=== PATIENT | female | born 1975 | race Caucasian/White ===

== ENCOUNTER 2017-10-03 15:14 | Emergency (ER) | payer OTHER ==
[2017-10-03] MEDS ORDERED: KETOROLAC TROMETHAMINE 60 MG/2 ML VIAL IM ONE (15:43)
[2017-10-03] MEDS ORDERED: NALBUPHINE HCL 10 MG/1 ML IM ONE (15:44)
--- NOTE | 2017-10-03 15:51 | ED Physician Documentation ---
General Adult - HISTORIAN Historian: patient - HPI Stated Complaint: Rt HIp Pain Chief Complaint: General Adult Further Comments: yes (42 year old female patient presents with complaints of right hip pain, radiating down outside of right leg. Patient reports pain for the past 2-3 days, has been to the chiropractor with no improvements. Denies injury or fall.) - ROS CONST: no problems EYES/ENT: none CVS/RESP: none GI/: none MS/SKIN/LYMPH: none NEURO/PSYCH: denies: headache - PAST HX Past History: other (bipolar) Allergies/Adverse Reactions: Allergies Allergy/AdvReac Type Severity Reaction Status Date / Time No Known Allergies Allergy Verified 10/03/17 15:49 Home Medications: Ambulatory Orders Medication Instructions Recorded Atorvastatin Calcium [Atorvastatin 20 mg PO DAILY 11/08/15 Calcium] Aripiprazole [Aripiprazole] 5 mg PO D 04/09/16 Oxycodone HCl [Oxycodone HCl] 1 tab PO PRN 04/09/16 Meloxicam 15 mg PO DAILY #7 tablet 10/03/17 - SOCIAL HX Smoking History: cigarettes - FAMILY HX Family History: No - VITAL SIGNS Vital Signs: Vital Signs Temp Pulse Resp BP Pulse Ox 98.4 F 96 H 16 137/66 99 10/03/17 15:31 10/03/17 15:31 10/03/17 15:31 10/03/17 15:31 10/03/17 15:31 - REVIEWED ASSESSMENTS Nursing Assessment Reviewed: Yes Vitals Reviewed: Yes Progress - Progress Progress: Medicated with toradol and nubain while in Er. ED Results Lab/Radiology - Orders Orders: ED Orders Category Date Time Status Ketorolac Tromethamine [Toradol] Med 10/03/17 15:43 Discontinued 60 mg IM NOW ONE Nalbuphine HCl [Nubain] Med 10/03/17 15:44 Discontinued 10 mg IM NOW ONE General Adult Physical Exam - PHYSICAL EXAM GENERAL APPEARANCE: mild distress EENT: eye inspection normal, JOLIE RESPIRATORY: no resp distress, chest non-tender, breath sounds normal CVS: reg rate & rhythm, heart sounds normal, equal pulses, no murmur, no gallop , PMI nml, no JVD, no friction rub, 24 ABDOMEN: soft, no organomegaly, normal bowel sounds, no abdominal bruit, no distension SKIN: normal color, warm/dry, NR, INT, PAL, DR EXTREMITIES: non-tender, normal range of motion, no evidence of injury, no edema , other (ataxic gait due to pain) NEURO: oriented X3, CN's nml as tested, motor nml, sensation nml, mood/affect nml Discharge Clincal Impression: Sciatica of right side Prescriptions: Meloxicam 15 mg PO DAILY #7 tablet Referrals: Rosana Walton MD [Primary Care Provider] - 2 Days Additional Instructions: Ice Rest Elevation If you are unable to bear weight and continuing to have significant pain on day 3-4; see your PCP for re-evaluation and additional xrays. You may use Tylenol every 4hour as needed for pain. Limit your dose to less than 4 G per day. Do not take ibuprofen, aleve, naproxen or any other NSAID while you are on toradol. You may want to try massage, over the counter lidocaine patches, biofreeze, jose juan ingram or aspercream . Condition: Stable Disposition: 01 HOME, SELF-CARE Decision to Admit: NO Decision Time: 15:51
[2017-10-03 16:35] VITALS: BP 140/76
== END 2017-10-03 16:10 | disposition home or self-care (01) ==
LOC: ED 15:14
DX: M54.31 Sciatica, right side (principal)
CPT/HCPCS: J1885; J2300; 96372; 99284

== ENCOUNTER 2018-06-03 02:09 | Emergency (ER) | payer OTHER ==
[2018-06-03] MEDS ORDERED: NALBUPHINE HCL 10 MG/1 ML IM ONE (02:52)
[2018-06-03] MEDS ORDERED: methylPREDNISolone ACETATE 80 MG/ML VIAL IM ONE (02:53)
--- NOTE | 2018-06-03 02:57 | ED Physician Documentation ---
Low Back Pain - HISTORIAN Historian: patient - HPI Stated Complaint: Back pain, bilateral hips, noted some abdominal bloating today Chief Complaint: Low Back Pain/ Injury History: back pain (Since 2017) Onset: days ago Duration: continues in ED Context: bending. denies: lifting, turning, fall, near-fall, trauma Where: home Other Injuries: back Severity: severe Relieved By: remaining still Further Comments: yes (42 year old female present with low back pain since April. Patient denies trauma, heavy lifting or sitting for long period; denies loss of bowel or bladder. Pain worse with bending over. Worse with mo vement; c/o spasms) - ROS CONST: recent illness (back pain since Apr; chronic knee pain) CVS/RESP: none EYES/ENT: none MS/SKIN/LYMPH: back pain Neuro/Psych: none - PAST HX Past History: back pain Other History: diabetes Type 1, hypertension, other (depression, HLD) Allergies/Adverse Reactions: Allergies Allergy/AdvReac Type Severity Reaction Status Date / Time No Known Allergies Allergy Verified 06/03/18 02:46 Home Medications: Ambulatory Orders Medication Instructions Recorded Atorvastatin Calcium 10 mg PO DAILY 11/08/15 Oxycodone HCl 1 tab PO TID PRN 04/09/16 Baclofen [Liorasal] 10 mg PO TID PRN #30 tablet 06/03/18 Duloxetine HCl 60 mg PO BID 06/03/18 Methylprednisolone [Medrol] 4 mg PO DAILY #1 tab.ds.pk 06/03/18 Omeprazole 40 mg PO BID 06/03/18 - SOCIAL HX Smoking History: cigarettes - FAMILY HX Family History: denies: none - VITAL SIGNS Vital Signs: Vital Signs Temp Pulse Resp BP Pulse Ox 98 F 109 H 18 158/88 93 06/03/18 02:09 06/03/18 02:09 06/03/18 02:09 06/03/18 02:09 06/03/18 02:09 - REVIEWED ASSESSMENTS Nursing Assessment Reviewed: Yes Vitals Reviewed: Yes Progress - Progress Progress: Patient presents with empty bottle of oxycodone 10 mg tabs from 05/10/2018 #90 Old records reviewed. Insurance does not cover toradol; previously treated with meloxicam. Will give IM steroid; and follow with medrol dose pack. Patient reports she has an appointment with Dr Walton on . ED Results Lab/Radiology - Orders Orders: ED Orders Category Date Time Status Nalbuphine HCl [Nubain] Med 06/03/18 02:52 Once 10 mg IM NOW ONE methylPREDNISolone ACETATE [Depo-Medrol] Med 06/03/18 02:53 Once 80 mg IM NOW ONE Low Back Pain/Injury - Physical Exam General Appearance: mild distress (poor personal hygiene; strong odor of cigarettes) EENT: eye inspection normal, JOLIE Resp/CVS: chest non-tender, breath sounds nml, heart sounds nml, no resp. distress, lungs clear, reg. rate & rhythm Abdomen: non-tender, no organomegaly, no pulsatile mass, other (negative Harvey's; morbid obesity) Back: other (patient c/o lower mid back pain; no tenderness with palpation; negative left and right leg raise. Grimacing with lying flat and sitting up.). No: muscle spasm Straight Leg Raising: Negative Left, Negative Right Neuro/Psych: oriented x3, motor nml, sensation nml, bilat. 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 Limit your dose to less than 4 G per day. Alternate with Ibuprofen 600-800mg three times a day with food as needed. Do not take for more than 5 days in a row. You may want to try massage, over the counter lidocaine patches, biofreeze, jose juan ingram or aspercream . If you are unable to bear weight and continuing to have significant pain on day 3-4; see your PCP for re-evaluation and additional xrays. Condition: Stable Disposition: 01 HOME, SELF-CARE Decision to Admit: NO Decision Time: 03:03
[2018-06-03 04:15] VITALS: BP 152/68
[2018-06-03 15:19] LABS: APPEARANCE,URINE CLOUDY (CLEAR); COLOR,URINE YELLOW (YELLOW); OCCULT BLOOD,URINE NEGATIVE (NEGATIVE); PH URINE 6.5 (5.0 - 8.0)
== END 2018-06-03 03:10 | disposition home or self-care (01) ==
LOC: ED 02:09
DX: M54.5 Low back pain (principal)
CPT/HCPCS: 81002; 96372; 99283; 99284; J1040; J2300

== ENCOUNTER 2018-07-08 04:37 | Emergency (ER) | payer OTHER ==
[2018-07-08 04:59] VITALS: BP 145/83
[2018-07-08] MEDS ORDERED: KETOROLAC TROMETHAMINE 60 MG/2 ML VIAL IM ONE (05:08)
--- NOTE | 2018-07-08 05:14 | ED Physician Documentation ---
General Adult - HPI Stated Complaint: fall injury to rt knee Chief Complaint: General Adult Onset: hours Timing: still present Severity: moderate Further Comments: yes (Pt is a 42 yo female who slipped on ice and injured her R knee. Pt has hx chronic L knee pain also. Pt has hx DM & ortho surgery.) - ROS CONST: no problems EYES/ENT: none CVS/RESP: none GI/: none MS/SKIN/LYMPH: other (R knee pain) - PAST HX Past History: other (DM, Bipolar d/o, HLD, HTN, chronic L knee pain) Surgeries/Procedures: other (appendectomy, ortho surgery) Allergies/Adverse Reactions: Allergies Allergy/AdvReac Type Severity Reaction Status Date / Time No Known Allergies Allergy Verified 07/08/18 04:56 Home Medications: Ambulatory Orders Medication Instructions Recorded Atorvastatin Calcium 10 mg PO DAILY 11/08/15 Oxycodone HCl 1 tab PO TID PRN 04/09/16 Duloxetine HCl 60 mg PO BID 06/03/18 Omeprazole 40 mg PO BID 06/03/18 Lisinopril 20 mg PO D 07/08/18 Metformin HCl [Glucophage] 1,000 mg PO BID 07/08/18 - SOCIAL HX Smoking History: cigarettes - FAMILY HX Family History: No - VITAL SIGNS Vital Signs: Vital Signs Temp Pulse Resp BP Pulse Ox 99.3 F 112 H 18 145/83 94 07/08/18 04:37 07/08/18 04:37 07/08/18 04:37 07/08/18 04:37 07/08/18 04:37 - REVIEWED ASSESSMENTS Nursing Assessment Reviewed: Yes Vitals Reviewed: Yes Progress - Progress Progress: Toradol 60 mg IM X-ray R knee: AP, lateral and sunrise views of the right demonstrate no evidence for acute fracture or dislocation. No joint effusion is noted. There are no degenerative findings. Impression: No osseous abnormality. Ibuprofen 200 mg. Take 2 or 3 tablets by mouth every 8 hours with food. SHADE wrap. Crutches as needed. ED Results Lab/Radiology - Orders Orders: ED Orders Category Date Time Status Apply ice to affected area NOW Care 07/08/18 05:04 Active KNEE 3 VIEWS [RAD] Stat Exams 07/08/18 Ordered Ketorolac Tromethamine [Toradol] Med 07/08/18 05:08 Once 60 mg IM NOW ONE General Adult Physical Exam - PHYSICAL EXAM GENERAL APPEARANCE: mild distress EENT: eye inspection normal NECK: normal inspection, supple RESPIRATORY: no resp distress, chest non-tender, breath sounds normal CVS: reg rate & rhythm, heart sounds normal BACK: normal inspection, no CVA tenderness SKIN: warm/dry, normal color EXTREMITIES: other (no R knee joint effusion; pain medially with full extension) NEURO: oriented X3, motor nml, sensation nml Discharge Clincal Impression: Fall, R knee pain Referrals: Rosana Walton MD [Primary Care Provider] - Condition: Stable Disposition: 01 HOME, SELF-CARE Decision to Admit: NO Decision Time: 05:52
--- NOTE | 2018-07-08 06:12 | Diagnostic Imaging Report ---
EMERSON CATES [facility] [address] [facility] [address] 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 Fell on ice AP, lateral and sunrise views of the right demonstrate no evidence for acute fracture or dislocation. No joint effusion is noted. There are no degenerative findings. Impression: No osseous abnormality. Electronically signed on Jul 08, 2018 5:31:09 AM SHIP CONSTRUCTION TEACHER by: Carley LALA
== END 2018-07-08 05:57 | disposition home or self-care (01) ==
LOC: ED 04:37
DX: M25.561 Pain in right knee (principal); W00.9XXA Unspecified fall due to ice and snow, initial encounter; Y93.9 Activity, unspecified; Y92.9 Unspecified place or not applicable
CPT/HCPCS: 29530; 73562; 96372; 99282; 99283; J1885

== ENCOUNTER 2018-07-21 01:23 | Emergency (ER) | payer OTHER ==
[2018-07-21] MEDS ORDERED: IPRATROPIUM/ALBUTEROL SULFATE 3 ML AMPUL.NEB NEB ONE (01:48)
--- NOTE | 2018-07-21 01:48 | ED Physician Documentation ---
Upper Respiratory Symptoms - HISTORIAN Historian: patient - HPI Stated Complaint: cough Chief Complaint: Cough/ Upper Respiratory Additional Information: Patient presents to ER with a 2 day history of cough, worse at night and with deep inspiration. She admits to sick contacts with influenza. Patient denies fever, sputum production, nasal congestion. Tonight around 12:30 she had a coughing fit and now her ribs and throat hurts. Onset: days ago (2) Duration: intermittent episodes Context: denies: recent foreign travel Severity: moderate Associated Symptoms: shortness of breath. denies: fever, productive cough - ROS CONST/EYES: denies: weakness CVS/RESP: shortness of breath LYMPH: denies: rash GI/: denies: vomiting, nausea NEURO/PSYCH: denies: dizziness MS/SKIN: denies: muscle aches - PAST HX Lung Disease: COPD PE Risk Factors: hypertension. denies: leg swelling Surgeries/Procedures: none Allergies/Adverse Reactions: Allergies Allergy/AdvReac Type Severity Reaction Status Date / Time No Known Allergies Allergy Verified 07/08/18 04:56 Home Medications: Ambulatory Orders Medication Instructions Recorded Atorvastatin Calcium 10 mg PO DAILY 11/08/15 Oxycodone HCl 1 tab PO TID PRN 04/09/16 Duloxetine HCl 60 mg PO BID 06/03/18 Omeprazole 40 mg PO BID 06/03/18 Lisinopril 20 mg PO D 07/08/18 Metformin HCl [Glucophage] 1,000 mg PO BID 07/08/18 Azithromycin 500 mg PO DAILY #5 tablet 07/21/18 Glimepiride [Amaryl] 2 mg PO D 07/21/18 Ipratropium/Albuterol Sulfate 3 ml NEB TID #90 ampul.neb 07/21/18 [Duoneb] predniSONE [Deltasone] 10 mg PO DIRECTED #31 tablet 07/21/18 - SOCIAL HX Smoking History: cigarettes, greater than 1 pack/day Alcohol Use: none Drug Use: none - FAMILY HX Family History: none - VITAL SIGNS Vital Signs: Vital Signs Temp Pulse Resp BP Pulse Ox 97.2 F L 113 H 20 161/82 93 07/21/18 01:23 07/21/18 01:23 07/21/18 01:23 07/21/18 01:23 07/21/18 01:23 - REVIEWED ASSESSMENTS Nursing Assessment Reviewed: Yes Vitals Reviewed: Yes ED Results Lab/Radiology - Orders Orders: ED Orders Category Date Time Status Azithromycin [Zithromax] Med 07/21/18 01:55 Once 500 mg PO NOW ONE Ipratropium/Albuterol Sulfate [Duoneb] Med 07/21/18 01:48 Once 3 ml NEB NOW ONE methylPREDNISolone SOD SUCC [Solu-MEDROL] Med 07/21/18 01:55 Once 125 mg IM NOW ONE Upper Respiratory Symptoms - EXAM General Appearance: no acute distress, alert EENT: nml ENT inspection Neck: supple Respiratory: no resp. distress, decreased air movement Abdomen: non-tender, no distention. No: tenderness CVS: reg rate & rhythm, no murmur, other (clubbing of fingers) Skin: warm,dry Extremities: non-tender, no evidence of injury, no edema Neuro/Psych: oriented x3, mood/affect nml Discharge Clincal Impression: COPD with acute exacerbation Prescriptions: Azithromycin 500 mg PO DAILY #5 tablet Ipratropium/Albuterol Sulfate [Duoneb] 3 ml NEB TID #90 ampul.neb predniSONE [Deltasone] 10 mg PO DIRECTED #31 tablet Referrals: Rosana Walton MD [Primary Care Provider] - 2 Days Additional Instructions: 1. Azithromycin and prednisone daily as directed until gone 2. Smoking cessation strongly recommended 3. Duoneb treatments every 8 hours 4. Add daily antihistamine such as Xyzal, Claritin, Zyrtec, or Angela 5. Follow up with PCP within 1 week 6. Return to ER for new or worsening symptoms. Condition: Stable Disposition: 01 HOME, SELF-CARE Decision to Admit: NO Date of Decison to Admit: 07/21/18 Decision Time: 02:00
[2018-07-21] MEDS ORDERED: methylPREDNISolone SOD SUCC 125 MG/2 ML VIAL IM ONE (01:55)
[2018-07-21] MEDS ORDERED: AZITHROMYCIN 250 MG TABLET PO ONE (01:55)
[2018-07-21 03:24] VITALS: BP 153/85
== END 2018-07-21 02:15 | disposition home or self-care (01) ==
LOC: ED 01:23
DX: J44.1 Chronic obstructive pulmonary disease with (acute) exacerbation (principal); Z72.0 Tobacco use
CPT/HCPCS: 87400; 94640; 96372; 99283; J2930

== ENCOUNTER 2019-02-04 17:15 | Emergency (ER) | payer OTHER ==
[2019-02-04] MEDS: 0.9 % SODIUM CHLORIDE 1,000 ML IV ONE (18:32)
--- NOTE | 2019-02-04 18:37 | ED Physician Documentation ---
Sore Throat/Dental Pain - HISTORIAN Historian: patient - HPI Stated Complaint: abdominal pain Chief Complaint: Sore Throat Onset: days ago Further Comments: yes - ROS CONST: recent illness (strep) CVS/RESP: none GI/: nausea, vomiting. denies: problems urinating MS/SKIN/LYMPH: denies: muscle aches, rash, leg swelling, ankle swelling, other NEURO/PSYCH: headache. denies: anxiety, depression - PAST HX Past History: none Other History: none Allergies/Adverse Reactions: Allergies Allergy/AdvReac Type Severity Reaction Status Date / Time No Known Allergies Allergy Verified 07/08/18 04:56 Home Medications: Ambulatory Orders Medication Instructions Recorded Atorvastatin Calcium 10 mg PO DAILY 11/08/15 Oxycodone HCl 1 tab PO TID PRN 04/09/16 Duloxetine HCl 60 mg PO BID 06/03/18 Omeprazole (Nf) [Omeprazole] 40 mg PO BID 06/03/18 Lisinopril 20 mg PO D 07/08/18 metFORMIN HCl [Glucophage] 1,000 mg PO BID 07/08/18 Azithromycin 500 mg PO DAILY #5 tablet 07/21/18 Glimepiride [Amaryl] 2 mg PO D 07/21/18 Ipratropium/Albuterol Sulfate 3 ml NEB TID #90 ampul.neb 07/21/18 [Duoneb] predniSONE [Deltasone] 10 mg PO DIRECTED #31 tablet 07/21/18 - VITAL SIGNS Vital Signs: Vital Signs Temp Pulse Resp BP Pulse Ox 153/85 07/21/18 02:22 ED Results Lab/Radiology - Orders Orders: ED Orders Category Date Time Status Place IV Lock 1T Care 02/04/19 17:[address] ABD & PELVIS W/ CON Stat Exams 02/04/19 Ordered BLOOD CULTURE Stat Lab 02/04/19 Ordered CBC/PLATELET/DIFF Stat Lab 02/04/19 18:13 Received CMP Stat Lab 02/04/19 18:13 Received LACTATE Stat Lab 02/04/19 18:37 Ordered LIPASE Stat Lab 02/04/19 18:13 Received UA W/MICRO IF INDICATED Stat Lab 02/04/19 17:41 Ordered URINE HCG Stat Lab 02/04/19 Uncollected 0.9 % Sodium Chloride [Normal Saline] 1,000 ml Med 02/04/19 18:37 Ordered IV NOW Oxygen Daily Oxygen 02/04/19 18:30 Ordered Discharge Referrals: Rosana Walton MD [Primary Care Provider] - 2 Days
--- NOTE | 2019-02-04 18:49 | ED Physician Documentation ---
Abdominal Pain - HISTORIAN Historian: patient - HPI Stated Complaint: abdominal pain Chief Complaint: Abdominal Pain Onset: days ago Duration: waxing, waning Timing: worse Context: denies: out of country travel, bad food, recent trauma Severity: severe Quality: pain Associated Symptoms: chills, nausea, other (constipation). denies: fever, vomiting, coffee ground emesis, bloody emesis, diarrhea, bloody stools, grossly bloody stools, mucous, sweating, loss of appetite, chest pain, testicular pain, back pain Further Comments: yes (43 year old female patient presents with complaints of abdominal pain. Patient reports 4 month history of abdominal pain for 2-3 days of the month. Reports pain is worse this month. One small BM today; previous BM 7 days ago. Denies vomiting. Reports history of "fatty liver", states she has been cutting down on her oxycodone.) - ROS CONST: no problems GI/: constipation. denies: black stools, bloody urine, dark urine CVS/RESP: none EYES/ENT: none MS/SKIN/LYMPH: none NEURO/PSYCH: none - SOCIAL HX Smoking History: cigarettes - FAMILY HX Family History: denies: none - PAST HX Past History: GERD Other History: diabetes Type 2, hyperlipidemia, hypertension, other (chronic back pain; COPD) Surgeries/Procedures: appendectomy, other (right knee) Home Medications: Ambulatory Orders Medication Instructions Recorded Atorvastatin Calcium 10 mg PO DAILY 11/08/15 Oxycodone HCl 1 tab PO TID PRN 04/09/16 Duloxetine HCl 60 mg PO BID 06/03/18 Omeprazole (Nf) [Omeprazole] 40 mg PO BID 06/03/18 Lisinopril 40 mg PO D 07/08/18 metFORMIN HCl [Glucophage] 1,000 mg PO BID 07/08/18 Glimepiride [Amaryl] 2 mg PO D 07/21/18 Allergies/Adverse Reactions: Allergies Allergy/AdvReac Type Severity Reaction Status Date / Time No Known Allergies Allergy Verified 02/04/19 19:10 - VITAL SIGNS Vital Signs: Vital Signs Temp Pulse Resp BP Pulse Ox 97.8 F 80 18 159/102 92 02/04/19 17:25 02/04/19 21:12 02/04/19 21:12 02/04/19 21:12 02/04/19 21:12 - REVIEWED ASSESSMENTS Nursing Assessment Reviewed: Yes Vitals Reviewed: Yes Progress - Progress Progress: Patient states she feels better at discharge. Denies nausea. Reviewed lab and CT results with patient. Recommended follow up with PCP for recheck of lab. Scheduled for outpatient US of RUQ. Reviewed signs and symptoms to return to ER for - patient verbalized understanding. ED Results Lab/Radiology - Lab Results Lab Results: Lab Results 02/04/19 02/04/19 18:13 18:13 WBC 16.60 K/ul H K/ul (4.00-12.00) RBC 4.74 M/ul M/ul (3.90-5.20) Hgb 13.9 g/dL g/dL (11.5-16.0) Hct 40.9 % % (34.5-46.5) MCV 86.0 fl fl (80.0-100.0) MCH 29.2 pg pg (28.0-34.0) MCHC 33.9 g/dL g/dL (30.0-36.0) RDW 14.5 % H % (11.3-14.3) Plt Count 407 K/mm3 H K/mm3 (130-400) Neut % (Auto) 74.1 % % (39.0-79.0) Lymph % (Auto) 19.1 % % (16.0-50.0) Davidson % (Auto) 4.4 % % (0.0-11.0) Eos % (Auto) 1.8 % % (0.0-6.8) Baso % (Auto) 0.6 % % (0.0-1.5) Neut # (Auto) 12.3 # k/uL H # k/uL (1.4-7.7) Lymph # (Auto) 3.2 # k/uL # k/uL (0.6-4.0) Davidson # (Auto) 0.7 # k/uL # k/uL (0.0-0.9) Eos # (Auto) 0.3 # k/uL # k/uL (0.0-0.6) Baso # (Auto) 0.1 # k/uL # k/uL (0.0-0.5) Sodium 140 mmol/L mmol/L (137-145) Potassium 3.9 mmol/L mmol/L (3.5-5.1) Chloride 97 mmol/L L mmol/L (98-107) Carbon Dioxide 25 mmol/L mmol/L (22-30) Anion Gap 21.9 BUN 8 mg/dL mg/dL (7-17) Creatinine 0.41 mg/dL L mg/dL (0.52-1.04) Estimated Creat Clear 349 Est GFR ( Amer) > 60 (60 - ) Est GFR (Non-Af Amer) > 60 (60 - ) Glucose 169 mg/dL H mg/dL (74-106) Calcium 9.2 mg/dL mg/dL (8.4-10.2) Total Bilirubin 0.2 mg/dL mg/dL (0.2-1.3) AST 39 U/L U/L (15-46) ALT 32 U/L U/L (13-69) Alkaline Phosphatase 98 U/L U/L (38-126) Total Protein 7.8 g/dL g/dL (6.3-8.2) Albumin 4.2 g/dL g/dL (3.5-5.0) Lipase 136 U/L U/L (23-300) - Radiology Radiology Impressions: CT abdomen and pelvis with intravenous contrast HISTORY Epigastric pain TECHNIQUE Images through the abdomen and pelvis were obtained following intravenous contrast administration. FINDINGS The lung bases are clear. There is fatty infiltration of the liver. The portal vein enhances normally. There is no biliary duct dilatation. The gallbladder, spleen, pancreas, kidneys and adrenal glands are normal. There is no hydronephrosis, hydroureter, free intraperitoneal air or fluid. There is no bowel obstruction. The appendix is not seen. Uterus is grossly normal. The aorta enhances normally. Small umbilical hernia is present and contains a small amount of intraperitoneal fat. IMPRESSION Fatty infiltration of the liver. No acute abnormality. Electronically signed on Feb 04, 2019 7:36:28 PM CDT by: Sadiq Jensen - Orders Orders: ED Orders Category Date Time Status Place IV Lock 1T Care 02/04/19 17:[address] ABD & PELVIS W/ CON Stat Exams 02/04/19 Completed BLOOD CULTURE Stat Lab 02/04/19 Ordered CBC/PLATELET/DIFF Stat Lab 02/04/19 18:13 Completed CMP Stat Lab 02/04/19 18:13 Completed LACTATE Stat Lab 02/04/19 18:37 Ordered LIPASE Stat Lab 02/04/19 18:13 Completed UA W/MICRO IF INDICATED Stat Lab 02/04/19 17:41 Ordered 0.9 % Sodium Chloride [Normal Saline] 1,000 ml Med 02/04/19 18:37 Discontinued IV NOW Oxygen Daily Oxygen 02/04/19 18:30 Ordered Abdominal Pain Physical Exam - Physical Exam General Appearance: mild distress EENT: eye inspection normal, JOLIE RESPIRATORY: no resp distress, chest non-tender, breath sounds normal CVS: reg rate & rhythm, heart sounds normal, equal pulses, no murmur, no gallop, PMI nml, no JVD, no friction rub, 24 ABDOMEN: soft, no organomegaly, normal bowel sounds, no abdominal bruit, no distension, other (LUQ and RUQ pain; epigastric pain. 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 Saturday, 02/06/19 at 8:30 - RUQ ultrasound - do not eat or drink anything after midnight Return to the emergency department or call your doctor, if you are having severe abdominal pain, fever >101.0, or if there is blood in the vomit or diarrhea, or you cannot keep down liquids or solid food. Condition: Stable Disposition: 01 HOME, SELF-CARE Decision to Admit: NO Decision Time: 20:26
[2019-02-04 19:02] LABS: eGFR (Non-African) > 60
[2019-02-04 19:09] LABS: BASOPHILS % 0.6 % (0.0-1.5); NEUTROPHILS # 12.3 # k/uL (1.4-7.7)
[2019-02-04 21:14] VITALS: BP 159/102
--- NOTE | 2019-02-04 21:43 | Diagnostic Imaging Report ---
LARRY HARRELL (FISHING FLOATS ASSEMBLER) - ER [facility] [address] [facility] [address] [place], [place]. [address] Report Submission Date: Feb 04, 2019 7:36:28 PM CDT Patient Study Name: DAVID CHASE Date: Feb 04, 2019 7:10:44 PM CDT Modality Type: CT\SR Gender: F Description: CT ABD PELVIS W/ CON : 79 Institution: [facility] Physician: LARRY HARRELL (FISHING FLOATS ASSEMBLER) - ER CT abdomen and pelvis with intravenous contrast HISTORY Epigastric pain TECHNIQUE Images through the abdomen and pelvis were obtained following intravenous contrast administration. FINDINGS The lung bases are clear. There is fatty infiltration of the liver. The portal vein enhances normally. There is no biliary duct dilatation. The gallbladder, spleen, pancreas, kidneys and adrenal glands are normal. There is no hydronephrosis, hydroureter, free intraperitoneal air or fluid. There is no bowel obstruction. The appendix is not seen. Uterus is grossly normal. The aorta enhances normally. Small umbilical hernia is present and contains a small amount of intraperitoneal fat. IMPRESSION Fatty infiltration of the liver. No acute abnormality. Electronically signed on Feb 04, 2019 7:36:28 PM CDT by: Sadiq LALA
[2019-02-05 06:14] LABS: APPEARANCE,URINE CLEAR (CLEAR); COLOR,URINE YELLOW (YELLOW); OCCULT BLOOD,URINE NEGATIVE (NEGATIVE)
[2019-02-05 06:15] LABS: PH URINE 6.5 (5.0 - 8.0); UROBILINOGEN URINE 0.2 Eu (0.2-1.0)
== END 2019-02-04 21:12 | disposition home or self-care (01) ==
LOC: ED 17:15
DX: R10.11 Right upper quadrant pain (principal); D72.828 Other elevated white blood cell count
CPT/HCPCS: 74177; 80053; 83690; 85025; 99282; J7030; Q9967; 81002; 87040; S1016

== ENCOUNTER 2019-02-06 08:27 | Outpatient (CLI) | payer OTHER ==
--- NOTE | 2019-02-07 00:15 | Diagnostic Imaging Report ---
LARRY HARRELL (WEB OFFSET PRESS FEEDER) - ER [facility] [address] [facility] [address] [place], [place]. [address] Report Submission Date: Feb 06, 2019 11:17:35 AM CDT Patient Study Name: DAVID CHASE Date: Feb 06, 2019 8:31:02 AM CDT Modality Type: US Gender: F Description: US ABDOMEN LIMITED : 79 Institution: [facility] Physician: LARRY HARRELLWEB OFFSET PRESS FEEDER) - ER Ultrasound abdomen limited ? Indication: ITS.REASON EPIGASTRIC PAIN Note time : 02/06/2019 11:02:50 AM User : Tamica Fernando ruq Note time : 02/06/2019 11:04:12 AM User : Tamica Fernando RUQ pain. LIMITED EXAM DUE TO BODY HABITUS ?FATTY LIVER ?ENLARGED LIVER PANCREAS NOT WELL VISUALIZED DUE TO GAS AND BODY HABITUS (DICOM Hx) / ITS.REASON EPIGASTRIC PAIN (Pt comments) (DICOM Hx) ? Findings: Liver is fatty. Small amount of gallbladder sludge. No wall thickening or distention. Common bile duct 3 mm. Right kidney normal. Pancreas not well seen. Portal vein patent. Impression: Fatty liver disease. Gallbladder sludge, minor Electronically signed on Feb 06, 2019 11:17:35 AM CDT by: Casey LALA
== END 2019-02-06 08:30 ==
LOC: RAD 08:27
PROVIDERS: ATTEND Emergency Medicine
DX: R10.11 Right upper quadrant pain (principal); R10.13 Epigastric pain
CPT/HCPCS: 76705

== ENCOUNTER 2019-04-14 19:04 | Emergency (ER) | payer OTHER ==
[2019-04-14] MEDS ORDERED: PROMETHAZINE HCL 25 MG/ML VIAL IM ONE (19:33)
[2019-04-14] MEDS ORDERED: KETOROLAC TROMETHAMINE 60 MG/2 ML VIAL IM ONE (19:33)
[2019-04-14 19:41] VITALS: BP 163/86
[2019-04-14] MEDS ORDERED: BACLOFEN 10 MG TABLET PO ONE (19:57)
--- NOTE | 2019-04-14 20:01 | ED Physician Documentation ---
Low Back Pain - HISTORIAN Historian: patient - HPI Stated Complaint: Back pain for 2 days Chief Complaint: Low Back Pain/ Injury Additional Information: 43 year old female who presents with thoracic back pain that wraps to the front; she has chronic back pain and takes oxycodone but did not have relief today; no pain on palpation; she is able to bend forward and backward; negative straight leg raise. History: history of chronic pain:, back pain Onset: hours Duration: continues in ED Recent Injury: No Where: home Severity: mild Quality: similar- prior back pain Associated Symptoms: denies: fever, chills, problems urinating, difficulty walking Worsened By:: upright position Relieved By: remaining still - ROS CONST: no problems CVS/RESP: none EYES/ENT: none MS/SKIN/LYMPH: none Neuro/Psych: none GI/: denies: abdominal pain - PAST HX Past History: other (bipolar, depression, chronic low back pain, ) Other History: diabetes Type 2, hypertension, other (COPD) Surgeries/Procedures: none Immunizations: UTD Allergies/Adverse Reactions: Allergies Allergy/AdvReac Type Severity Reaction Status Date / Time No Known Allergies Allergy Verified 04/14/19 19:32 Home Medications: Ambulatory Orders Medication Instructions Recorded Atorvastatin Calcium 10 mg PO DAILY 11/08/15 Oxycodone HCl 1 tab PO TID PRN 04/09/16 Omeprazole (Nf) [Omeprazole] 40 mg PO BID 06/03/18 Lisinopril 40 mg PO D 07/08/18 metFORMIN HCl [Glucophage] 1,000 mg PO BID 07/08/18 Glimepiride [Amaryl] 2 mg PO D 07/21/18 Baclofen 10 mg PO BID #20 tablet 04/14/19 Duloxetine HCl [Cymbalta] 60 mg PO BID 04/14/19 Lamotrigine [Lamictal] 200 mg PO BID 04/14/19 SITagliptin PHOSPHATE [Januvia] 50 mg PO DAILY 04/14/19 Umeclidinium Brm/Vilanterol Tr 1 puff IH DAILY 04/14/19 [Anoro Ellipta 62.5-25 Mcg INH] - SOCIAL HX Smoking History: greater than 1 pack/day Alcohol Use: none Drug Use: none - FAMILY HX Family History: none - VITAL SIGNS Vital Signs: Vital Signs Temp Pulse Resp BP Pulse Ox 97.6 F 117 H 20 163/86 98 04/14/19 19:04 04/14/19 20:19 04/14/19 20:19 04/14/19 20:19 04/14/19 19:04 - REVIEWED ASSESSMENTS Nursing Assessment Reviewed: Yes Vitals Reviewed: Yes ED Results Lab/Radiology - Orders Orders: ED Orders Category Date Time Status URINALYSIS Routine Lab 04/14/19 19:33 Ordered Baclofen [Lioresal] Med 04/14/19 19:57 Discontinued 10 mg PO NOW ONE Ketorolac Tromethamine [Toradol] Med 04/14/19 19:33 Discontinued 60 mg IM NOW ONE Promethazine HCl [Phenergan] Med 04/14/19 19:33 Discontinued 25 mg IM NOW ONE Low Back Pain/Injury - Physical Exam General Appearance: no acute distress, alert EENT: eye inspection normal, ENT inspection normal, pharynx normal, no signs of dehydration, JOLIE Neck: non-tender Resp/CVS: breath sounds nml, heart sounds nml Abdomen: non-tender Neuro/Psych: oriented x3, motor nml, sensation nml Skin: warm/dry, normal color Extremities: normal range of motion Discharge Clincal Impression: Midline thoracic back pain Prescriptions: Baclofen 10 mg PO BID #20 tablet Referrals: Rosana Walton MD [Primary Care Provider] - 2 Days Additional Instructions: Will send referral for pain clinic with possible MYLES Start Baclofen 10mg by mouth twice a day as needed for muscle spasm Take Oxycodone as directed Follow up with PCP next week Condition: Good Decision to Admit: NO Decision Time: 20:45
[2019-04-15 06:19] LABS: APPEARANCE,URINE CLEAR (CLEAR); COLOR,URINE YELLOW (YELLOW)
[2019-04-15 06:20] LABS: OCCULT BLOOD,URINE NEGATIVE (NEGATIVE); UROBILINOGEN URINE 0.2 Eu (0.2-1.0)
== END 2019-04-14 20:10 ==
LOC: ED 19:04
DX: M54.6 Pain in thoracic spine (principal)
CPT/HCPCS: 81002; 96372; 99284; J1885; J2550

== ENCOUNTER 2019-04-16 01:24 | Inpatient (IN) | payer OTHER ==
--- NOTE | 2019-04-16 02:07 | ED Physician Documentation ---
Abdominal Pain - HISTORIAN Historian: patient - HPI Stated Complaint: Since Saturday, Abd. Pains N/V, now with HTN & Tachycardia Chief Complaint: Abdominal Pain Additonal Information: Patient presents to ED with epigastric pain, sharp stabbing, 10/10 pain radiating to her back since Saturday. Patient reports the pain is associated with nausea and vomiting. She denies fever or shortness of breath. Patient has oxycodone 10mg TID for home, however, she has not been taking it because it does not help the pain at all. Onset: days ago (5) Duration: constant Timing: worse Context: denies: out of country travel Severity: severe Quality: sharp, stabbing Associated Symptoms: nausea. denies: fever Exacerbated by: nothing Relieved by: nothing - ROS CONST: no problems GI/: constipation CVS/RESP: denies: shortness of breath, cough EYES/ENT: none MS/SKIN/LYMPH: denies: leg swelling NEURO/PSYCH: denies: headache - SOCIAL HX Smoking History: cigarettes, greater than 1 pack/day Alcohol Use: none Drug Use: none - FAMILY HX Family History: none - PAST HX Past History: GERD Ischemic Bowel Risk Factors: none Other History: diabetes Type 2 Surgeries/Procedures: cholecystectomy Home Medications: Ambulatory Orders Medication Instructions Recorded Atorvastatin Calcium 10 mg PO DAILY 11/08/15 Oxycodone HCl 1 tab PO TID PRN 04/09/16 Omeprazole (Nf) [Omeprazole] 40 mg PO BID 06/03/18 Lisinopril 40 mg PO D 07/08/18 metFORMIN HCl [Glucophage] 1,000 mg PO BID 07/08/18 Glimepiride [Amaryl] 2 mg PO D 07/21/18 Baclofen 10 mg PO BID #20 tablet 04/14/19 Duloxetine HCl [Cymbalta] 60 mg PO BID 04/14/19 Lamotrigine [Lamictal] 200 mg PO BID 04/14/19 SITagliptin PHOSPHATE [Januvia] 50 mg PO DAILY 04/14/19 Umeclidinium Brm/Vilanterol Tr 1 puff IH DAILY 04/14/19 [Anoro Ellipta 62.5-25 Mcg INH] Allergies/Adverse Reactions: Allergies Allergy/AdvReac Type Severity Reaction Status Date / Time No Known Allergies Allergy Verified 04/16/19 01:56 - VITAL SIGNS Vital Signs: Vital Signs Temp Pulse Resp BP Pulse Ox 97.6 F 125 H 24 187/100 98 04/16/19 01:28 04/16/19 01:28 04/16/19 01:28 04/16/19 01:04/16/19 01:28 - REVIEWED ASSESSMENTS Nursing Assessment Reviewed: Yes Vitals Reviewed: Yes Progress - Progress Progress: 0325 Discussed with ROGER Belcher for admission. She agrees to admit acute for pancreatitis. - EKG/XRAY/CT Comments: [address] elevation ED Results Lab/Radiology - Lab Results Lab Results: WBC 26.0, Hgb 15.0, Hct 45.9, Plt 516 Lipase 1082 Na 137, K 3.5, Cl 99, CO2 22, BUN 9, Cr 0.46, Alt 33, AST 38, bili 0.7 - Radiology Radiology Impressions: Report Submission Date: Apr 16, 2019 3:00:48 AM IT OPERATIONS SPECIALIST Patient Study Name: DAVID CHASE Date: Apr 16, 2019 2:35:25 AM IT OPERATIONS SPECIALIST Modality Type: CT\SR Gender: F Description: CT ABD PELVIS W/ CON : 79 Institution: [facility] Physician: BRIGIDO HONEYCUTT Computed tomography abdomen pelvis with contrast History: Epigastric pain Findings: Transverse abdomen and pelvis sections are obtained after 90 mL intravenous Omnipaque 350 and compared with the February 04, 2019 scan. Obesity and marked hepatic steatosis are unchanged. Mild inflammation is present in the pancreatic head. The kidneys, adrenals, spleen, gallbladder, bowel loops, great vessels, and mesenteric structures are unremarkable. There is no evidence of pancreatic necrosis or vascular complication. The common bile duct is normal in caliber. Pelvic sections reveal a small omentum containing umbilical hernia and nonvisualization of the appendix. The urinary bladder, uterus, ovaries, and pelvic bowel loops are unremarkable. Impression: 1. Mild acute uncomplicated pancreatitis. 2. Obesity and marked hepatic steatosis. 3. Small umbilical hernia and possible appendectomy. Surgical history not provided. Electronically signed on Apr 16, 2019 3:00:48 AM IT OPERATIONS SPECIALIST by: Earl Spaulding - Orders Orders: ED Orders Category Date Time Status Place IV Lock 1T Care 04/16/19 02:[address] ABD & PELVIS W/ CON Stat Exams 04/16/19 Completed BLOOD CULTURE Stat Lab 04/16/19 Ordered CBC/PLATELET/DIFF Routine Lab 04/16/19 02:04 Received CMP Routine Lab 04/16/19 02:04 Received HCG [URINE HCG] Stat Lab 04/16/19 02:30 Ordered LACTATE Stat Lab 04/16/19 02:08 Received LIPASE Stat Lab 04/16/19 02:08 Received UA W/MICRO IF INDICATED Routine Lab 04/16/19 02:03 Ordered 0.9 % Sodium Chloride [Normal Saline] 1,000 ml Med 04/16/19 02:11 Discontinued IV Q1H 0.9 % Sodium Chloride [Normal Saline] 1,000 ml Med 04/16/19 02:56 Active IV Q1H Mag Hydrox/Aluminum Hyd/Simeth [Mylanta] Med 04/16/19 02:14 Discontinued 30 ml PO NOW ONE Morphine Sulfate Med 04/16/19 02:13 Discontinued 4 mg IV NOW ONE Ondansetron HCl/Pf [Zofran] Med 04/16/19 02:13 Discontinued 4 mg IVP NOW ONE Pantoprazole Sodium [Protonix] 40 mg Med 04/16/19 02:14 Discontinued Sodium Chloride 0.9 % (Flush) [Normal Saline Flush] 10 ml IVP NOW hydrALAZINE HCL [Apresoline] Med 04/16/19 02:11 Discontinued 10 mg IVP NOW ONE hydrALAZINE HCL [Apresoline] Med 04/16/19 02:36 Discontinued 20 mg .ROUTE .STK-MED ONE EKG WITH COMPARISON Stat Ther 04/16/19 Ordered Abdominal Pain Physical Exam - Physical Exam General Appearance: alert, anxious, hyperventilating, other (writhing in pain) EENT: JOLIE NECK: supple RESPIRATORY: breath sounds normal CVS: tachycardia ABDOMEN: tenderness (epigastric), decreased BS, distended BACK: no CVA tenderness SKIN: warm/dry, normal color EXTREMITIES: non-tender, no edema NEURO: oriented X3, mood/affect nml Vital Signs: Vital Signs Temp Pulse Resp BP Pulse Ox 97.6 F 125 H 24 187/100 98 04/16/19 01:28 04/16/19 01:28 04/16/19 01:28 04/16/19 01:28 04/16/19 01:28 Discharge Clincal Impression: Acute pancreatitis Qualifiers: Pancreatitis type: drug induced Acute pancreatitis complication: no infection or necrosis Qualified Code(s): K85.30 - Drug induced acute pancreatitis without necrosis or infection Referrals: Rosana Walton MD [Primary Care Provider] - 2 Days Disposition: 09 ADMITTED INPATIENT Decision to Admit: [id number] Date of Decison to Admit: 04/16/19 Decision Time: 03:27
[2019-04-16] MEDS ORDERED: hydrALAZINE HCL 20 MG/1 ML IVP ONE (02:11)
[2019-04-16] MEDS ORDERED: 0.9 % SODIUM CHLORIDE 1,000 ML IV ONE ×2 (02:11→02:56)
[2019-04-16] MEDS ORDERED: ONDANSETRON HCL/PF 4 MG/ 2ML VIAL IVP ONE (02:13)
[2019-04-16] MEDS ORDERED: MORPHINE SULFATE 4 MG/ML VIAL IV ONE (02:13)
[2019-04-16] MEDS ORDERED: PANTOPRAZOLE SODIUM 40 MG in SODIUM CHLORIDE 0.9 % (FLUSH) 10 ML IVP ONE (02:14)
[2019-04-16] MEDS ORDERED: MAG HYDROX/ALUMINUM HYD/SIMETH 30 ML UDC PO ONE (02:14)
[2019-04-16] MEDS ORDERED: hydrALAZINE HCL 20 MG/1 ML ONE (02:36)
--- NOTE | 2019-04-16 03:04 | Diagnostic Imaging Report ---
PATIENT MR#: [id number] PATIENT PATIENT NAME: DAVID CHASE DATE OF : 1975 REFERRING PHYSICIAN: Delaney Lomas EXAM DATE: 04/16/2019 ACCESSION NUMBER: [id number] EXAM DESCRIPTION: CT ABD PELVIS W/ CON Computed tomography abdomen pelvis with contrast History: Epigastric pain Findings: Transverse abdomen and pelvis sections are obtained after 90 mL intravenous Omnipaque 350 and compared with the February 04, 2019 scan. Obesity and marked hepatic steatosis are unchanged. Mild inflammation is present in the pancreatic h ead. The kidneys, adrenals, spleen, gallbladder, bowel loops, great vessels, and mesenteric structures are unremarkable . There is no evidence of pancreatic necrosis or vascular complication. The common bile duct is normal in caliber. Pelvic sections reveal a small omentum containing umbilical hernia and nonvisualization of the append ix. The urinary bladder, uterus, ovaries, and pelvic bowel loops are unremarkable. Impression: 1. Mild acute uncomplicated pancreatitis. 2. Obesity and marked hepatic steatosis. 3. Small umbilical hernia and possible appendectomy. Surgical history not provided. Read by: Dr. Rahul Spaulding Transcribed by: Transcribed Date: Electronically signed by: Dr. Rahul Spaulding Date signed: 04/16/2019 3:03:39 AM
[2019-04-16] MEDS ORDERED: HYDROmorphone HCL/PF 1 MG/ML VIAL IVP PRN (03:40)
[2019-04-16] MEDS ORDERED: 0.9 % SODIUM CHLORIDE 1,000 ML IV SCH (03:45)
[2019-04-16] MEDS: LISINOPRIL 20 MG TABLET PO SCH (04:36)
[2019-04-16] MEDS ORDERED: HYDROmorphone HCL/PF 2 MG/ML VIAL ONE ×5 (04:40→23:08)
[2019-04-16] MEDS: NICOTINE 21mg 1 EACH PATCH.TD24 TD SCH (04:45)
[2019-04-16] MEDS: PANTOPRAZOLE SODIUM 40 MG in SODIUM CHLORIDE 0.9 % (FLUSH) 10 ML IVP SCH (06:56)
[2019-04-16] MEDS ORDERED: lamoTRIgine 100 MG TABLET PO ONE ×2 (08:03→19:23)
[2019-04-16] MEDS ORDERED: DULoxetine HCL 30 MG CAPSULE.DR PO ONE ×2 (08:03→19:22)
--- NOTE | 2019-04-16 08:21 | History and Physical Report ---
History of Present Illnes - History of Present Illness Reason for Visit: abd pain History of Present Illness: 43yo female who states that she has had several month history of intermittent abd pain. Was told that she had some fatty liver disease. Saturday start to have some epigastric pain with radiation into the back area. No modifying factors noted. Has been nauseated with dry heaving at times. No fever or chills noted. Was seen in ED on Saturday and last night for the pain. Was found to have pancreatitis and admitted to the hospital for further evaluation and treatment. No previous history of pancreatitis. No history of gall stones. Denies any alcoholic intake. - Past Medical History Cardiac: HTN Pulmonary: COPD Gastrointestinal: Other (Nonalcoholic fatty liver disease) Psych: Bipolar Endocrine: Diabetes - Past Surgical History Past Surgical History: Appendectomy - Past Family History Mother Family History: DM - Past Social History Smoke: 1 pack per day Occupation: disabled Alcohol: None Drugs: None Lives: With Family Domestic Violence: Negative - Health Maintenance Health Maintenance: Cholesterol, Influenza Vaccine. denies: Mammogram Influenza Vaccine: Current for this Influenza Season Pneumonia Vaccine: No Resuscitation Status: Resusciation Status Resuscitation Status Full Code - Unable to Obtain History Unable to Obtain: Yes Review of Systems - Review of Systems Constitutional: Weakness. negative: Fever, Chills, Sweats Eyes: negative: pain ENT: negative: Ear Pain, Ear Discharge, Nose Pain, Nose Discharge, Nose Congestion, Throat Pain Respiratory: Shortness of Breath (at baseline). negative: Cough, Dry, Hemoptysis, SOB with Excertion, Pleuritic Pain, Wheezing Cardiovascular: negative: Chest Pain, Palpitations, Orthopnea Gastrointestinal: Nausea, Vomiting, Abdominal Pain. negative: Diarrhea, Constipation, Melena, Hematochezia Genitourinary: negative: Dysuria, Frequency, Incontinence, Hematuria Musculoskeletal: negative: Neck Pain, Shoulder Pain, Arm Pain, Back Pain Skin: negative: Rash, Jaundice Neurological: negative: Weakness, Numbness, Incoordination, Confusion - Medications/Allergies Allergies/Adverse Reactions: Allergies Allergy/AdvReac Type Severity Reaction Status Date / Time No Known Allergies Allergy Verified 04/16/19 01:56 Current Inpatient Medications: Current Inpatient Medications Baclofen (Lioresal) 10 mg PO BID [facility] Stop: 05/16/19 08:59 Hydralazine HCl (Apresoline) 10 mg IVP TID PRN PRN Reason: hypertension Stop: 05/16/19 08:59 Hydromorphone HCl (Dilaudid) 0.5 mg IVP Q4H PRN PRN Reason: epigastric pain Stop: 05/16/19 03:39 Last Admin: 04/16/19 04:47 Dose: 0.5 mg Sodium Chloride (Normal Saline) 1,000 mls @ 100 mls/hr IV Q10H [facility] Stop: 05/16/19 03:44 Last Admin: 04/16/19 04:36 Dose: 100 mls/hr Pantoprazole Sodium 40 mg/ (SODIUM CHLORIDE 0.9 % (FLUSH)) 10 mls @ 300 mls/hr IVP 0700 [facility] Stop: 05/16/19 06:59 Last Admin: 04/16/19 06:56 Dose: 300 mls/hr Lisinopril (Prinivil) 40 mg PO D [facility] Stop: 05/16/19 08:59 Last Admin: 04/16/19 04:36 Dose: 40 mg Miscellaneous (Duloxetine Hcl [Cymbalta]) 60 mg PO BID [facility] Stop: 05/16/19 08:59 Miscellaneous (Lamotrigine [Lamictal]) 200 mg PO BID [facility] Stop: 05/16/19 08:59 Miscellaneous (Chem Sticks) 1 each CHEMQID [facility]; Protocol Stop: 05/16/19 07:29 Last Admin: 04/16/19 06:56 Dose: Not Given Nicotine (Habitrol 21mg) 1 each TD DAILY [facility] Stop: 05/16/19 08:59 Last Admin: 04/16/19 04:45 Dose: 1 each Exam - Exam Vital Signs: Vital Signs (72 hours) 04/14/19 04/16/19 04/16/19 20:19 01:28 03:36 Temperature 97.6 F Pulse Rate [ 125 H 122 H Left Pulse ox] Respiratory 24 20 Rate Blood Pressure 163/86 Blood Pressure 187/100 196/103 [Left Arm] Blood Pressure 163/86 [Right Arm] O2 Sat by Pulse 98 98 Oximetry 04/16/19 04/16/19 03:58 06:15 Temperature 97.8 F 97.2 F L Pulse Rate [ 128 H 130 H Left Pulse ox] Respiratory 24 25 H Rate Blood Pressure Blood Pressure 181/106 161/83 [Left Arm] Blood Pressure 163/86 [Right Arm] O2 Sat by Pulse 98 97 Oximetry General: Alert, Oriented to Person, Oriented to Place, Oriented to Time, Cooperative HEENT: Atraumatic, PERRLA, EOMI, Mouth Mucous membr. moist/[place], Nose Mucous membr. moist/[place], Dentition Normal, Hearing Grossly Normal Neck: Normal Range of Motion Carotids: WNL Thyroid: WNL Lungs: Clear to auscultation, Normal air movement, Speaks full Sentences Cardiovascular: Regular rate, Normal S1, Normal S2, No murmurs, Tachycardia Abdomen: Soft, No hepatospenomegaly, No masses, Other (tenderness in the epigastric and LUQ area, no guarding or rebound tenderness), Absent Bowel Sounds. No: Distended Integumentary: Normal, [place], Warm, Dry Extremities: No clubbing, No cyanosis, No edema, Normal pulses, No tenderness/swelling Neurological: Normal gait, Normal speech, Strength Equal Bilat, Normal tone, Sensation intact, Cranial nerves 3-12 NL, Reflexes 2+ Psych/Mental Status: Mental status NL, Mood NL, Appropriate Affect, Intact Judgment Assessment/Plan - Assessment/Plan (1) Essential hypertension Status: Acute Current Visit: Yes (2) Diabetes type 2, controlled Status: Acute Current Visit: Yes (3) Bipolar 2 disorder Status: Acute Current Visit: Yes (4) Acute pancreatitis Status: Acute Current Visit: Yes Qualifiers: Pancreatitis type: drug induced Acute pancreatitis complication: no infection or necrosis Qualified Code(s): K85.30 - Drug induced acute pancreatitis without necrosis or infection VTE Assessment - RISK FACTOR SCORE VTE RISK FACTOR SCORES: AGE 40-60 YEARS, ANTICIPATED BED CONFINEMENT OR IMMOBILIZATION > 24 HOURS - RISK VTE MODERATE RISK: SCORE OF 2 (RISK PROXIMAL DVT 2-4%) PROPHYAXIS NEEDED
[2019-04-16 08:33] LABS: APPEARANCE,URINE CLEAR (CLEAR); COLOR,URINE YELLOW (YELLOW); OCCULT BLOOD,URINE NEGATIVE (NEGATIVE); URINE HCG NEGATIVE (NEGATIVE); UROBILINOGEN URINE 0.2 Eu (0.2-1.0)
[2019-04-16 08:39] LABS: BASOPHILS % 0.8 % (0.0-1.5); NEUTROPHILS # 20.3 # k/uL (1.4-7.7)
[2019-04-16 08:40] LABS: eGFR (Non-African) > 60
[2019-04-16] MEDS: HYDROmorphone HCL/PF 1 MG/ML VIAL IVP PRN ×4 (09:05→23:21)
[2019-04-16] MEDS: 0.9 % SODIUM CHLORIDE 1,000 ML IV SCH ×2 (09:08→20:29)
[2019-04-16] MEDS: BACLOFEN 10 MG TABLET PO SCH ×2 (09:09→20:31)
[2019-04-16] MEDS: Non-Formulary 1 EACH (Lamotrigine [Lamictal] 200 MG) PO SCH ×2 (09:15→20:31)
[2019-04-16] MEDS: DULOXETINE HCL 60 MG PO SCH ×2 (09:15→20:31)
[2019-04-16 09:28] LABS: BASOPHILS % 0.8 % (0.0-1.5); NEUTROPHILS # 20.8 # k/uL (1.4-7.7); SEGMENTED NEUTROPHILS % 79 % (39-79)
[2019-04-16 09:39] LABS: HDL 31 mg/dL (>40)
[2019-04-16 09:48] LABS: eGFR (Non-African) > 60
[2019-04-16] MEDS: METOPROLOL TARTRATE 25 MG TABLET PO SCH ×2 (10:09→20:30)
[2019-04-16] MEDS: ENOXAPARIN SODIUM 40 MG/0.4 ML DISP.SYRIN SQ SCH (10:09)
[2019-04-16] MEDS: INSULIN REGULAR, HUMAN 100 UNIT/ML 10ML VIAL SQ SCH ×2 (12:33→16:59)
[2019-04-16] MEDS: KETOROLAC TROMETHAMINE 30 MG/1ML VIAL IV PRN ×2 (15:36→21:25)
[2019-04-17] MEDS ORDERED: HYDROmorphone HCL/PF 2 MG/ML VIAL ONE ×2 (02:25→07:13)
[2019-04-17] MEDS ORDERED: ONDANSETRON HCL/PF 4 MG/ 2ML VIAL ONE (02:25)
[2019-04-17] MEDS: HYDROmorphone HCL/PF 1 MG/ML VIAL IVP PRN ×2 (02:59→07:26)
[2019-04-17] MEDS: KETOROLAC TROMETHAMINE 30 MG/1ML VIAL IV PRN ×5 (03:13→21:30)
[2019-04-17] MEDS: 0.9 % SODIUM CHLORIDE 1,000 ML IV SCH ×3 (03:59→18:00)
[2019-04-17 04:22] VITALS: BMI 102.8
[2019-04-17] MEDS ORDERED: PANTOPRAZOLE SODIUM INJ. 40 MG VIAL ONE (04:48)
[2019-04-17] MEDS: PANTOPRAZOLE SODIUM 40 MG in SODIUM CHLORIDE 0.9 % (FLUSH) 10 ML IVP SCH (06:23)
[2019-04-17] MEDS: NICOTINE 21mg 1 EACH PATCH.TD24 TD SCH (06:24)
[2019-04-17 07:37] LABS: eGFR (Non-African) > 60
[2019-04-17] MEDS: INSULIN REGULAR, HUMAN 100 UNIT/ML 10ML VIAL SQ SCH ×3 (07:45→16:10)
[2019-04-17 07:50] LABS: BASOPHILS % 0.8 % (0.0-1.5); SEGMENTED NEUTROPHILS % 83 % (39-79)
[2019-04-17 07:51] LABS: HYPERSEGMENTED NEUTROPHILS PRESENT
--- NOTE | 2019-04-17 07:56 | Inpatient Progress Note ---
Subjective - Required Recertification Statement I anticipate X number of days because-include discharge plan: unknown - Review of Systems Events since last encounter: 43 year old female sitting up in chair this morning; staff are concerned that patient is focused on pain medication to the point of setting timer. Discussed with patient the concern of constipation, will decrease the time of pain medication. Added amlodipine for blood pressure. She has hydralazine ordered for elevated blood pressure but not given by nursing last night. RN will give this morning. Miralax given; enema eventually given. General: Denies: Night Sweats HEENT: Denies: Head Aches, Dysphasia Pulmonary: Denies: Dyspnea Cardiovascular: Denies: Chest Pain, Edema Gastrointestinal: Nausea, Vomiting, Abdominal Pain Genitourinary: Denies: Dysuria Musculoskeletal: Back Pain (chronic) Neurological: Denies: Weakness Objective - Exam Vitals and I&O: Vital Signs Temp 97.5 F L 04/17/19 05:55 Pulse 98 H 04/17/19 05:55 Resp 20 04/17/19 05:55 BP 170/98 04/17/19 05:55 Pulse Ox 93 04/17/19 05:55 Intake & Output 04/16/19 04/16/19 04/17/19 11:59 23:59 11:59 Intake Total 200 655 750 Output Total 600 650 Balance 200 55 100 Weight 112.037 kg 111.584 kg Intake: IV 200 625 750 Right Hand 200 625 750 Oral 0 30 0 Output: Urine 600 650 Other: Voiding Method Toilet Toilet Toilet # Voids 2 3 # Bowel Movements 0 General: Alert, Oriented to Person, Oriented to Place, Oriented to Time, Cooperative, Obese HEENT: Atraumatic, PERRLA, Mouth Mucous membr. moist/[place], Nose Mucous membr. moist/[place] Neck: Supple, No JVD, +2 carotid pulse wo bruit Lungs: Clear to auscultation, Normal air movement, Speaks full Sentences Cardiovascular: Normal S1, Normal S2, Tachycardia Abdomen: Normal bowel sounds, Soft Extremities: Normal pulses, No tenderness/swelling Skin: Normal, [place], Warm, Dry Neurological: Normal gait, Normal speech, Strength Equal Bilat, Sensation intact Psych/Mental Status: Mental status NL, Mood NL, Appropriate Affect, Intact Judgment - Results Results: Laboratory Results WBC 26.60 K/ul (4.00-12.00) H 04/17/19 06:33 RBC 5.09 M/ul (3.90-5.20) 04/17/19 06:33 Hgb 14.0 g/dL (11.5-16.0) 04/17/19 06:33 Hct 43.5 % (34.5-46.5) 04/17/19 06:33 MCV 85.0 fl (80.0-100.0) 04/17/19 06:33 MCH 27.5 pg (28.0-34.0) L 04/17/19 06:33 MCHC 32.3 g/dL (30.0-36.0) 04/17/19 06:33 RDW 13.6 % (11.3-14.3) 04/17/19 06:33 Plt Count 485 K/mm3 (130-400) H 04/17/19 06:33 Neut % (Auto) 78.7 % (39.0-79.0) 04/17/19 06:33 Lymph % (Auto) 12.8 % (16.0-50.0) L 04/17/19 06:33 [place] % (Auto) 6.2 % (0.0-11.0) 04/17/19 06:33 Eos % (Auto) 1.5 % (0.0-6.8) 04/17/19 06:33 Baso % (Auto) 0.8 % (0.0-1.5) 04/17/19 06:33 Neut # (Auto) 21.0 # k/uL (1.4-7.7) H 04/17/19 06:33 Lymph # (Auto) 3.4 # k/uL (0.6-4.0) 04/17/19 06:33 [place] # (Auto) 1.7 # k/uL (0.0-0.9) H 04/17/19 06:33 Eos # (Auto) 0.4 # k/uL (0.0-0.6) 04/17/19 06:33 Baso # (Auto) 0.2 # k/uL (0.0-0.5) 04/17/19 06:33 Seg Neutrophils % 83 % (39-79) H 04/17/19 06:33 Band Neutrophils % 2 % (0-12) 04/16/19 09:00 Lymphocytes % 10 % (16-50) L 04/17/19 06:33 Monocytes % 6 % (0-11) 04/17/19 06:33 Eosinophils % 1 % (0-7) 04/17/19 06:33 Hypersegmented Neuts Present 04/17/19 06:33 Large Platelets Present (NEGATIVE) H 04/17/19 06:33 Plt Morphology Comment Abnormal (NORMAL) H 04/17/19 06:33 RBC Morph Comment Normal (NORMAL) 04/17/19 06:33 Sodium 137 mmol/L (137-145) 04/17/19 06:33 Potassium 3.8 mmol/L (3.5-5.1) 04/17/19 06:33 Chloride 100 mmol/L (98-107) 04/17/19 06:33 Carbon Dioxide 25 mmol/L (22-30) 04/17/19 06:33 Anion Gap 15.8 04/17/19 06:33 BUN 8 mg/dL (7-17) 04/17/19 06:33 Creatinine 0.33 mg/dL (0.52-1.04) L 04/17/19 06:33 Estimated Creat Clear 464 04/17/19 06:33 Est GFR ( Amer) > 60 (60-) 04/17/19 06:33 Est GFR (Non-Af Amer) > 60 (60-) 04/17/19 06:33 Glucose 149 mg/dL (74-106) H 04/17/19 06:33 Lactate 2.4 U/L (0.7-2.1) H 04/16/19 02:08 Calcium 8.8 mg/dL (8.4-10.2) 04/17/19 06:33 Total Bilirubin 0.6 mg/dL (0.2-1.3) 04/17/19 06:33 AST 33 U/L (15-46) 04/17/19 06:33 ALT 31 U/L (0-35) 04/17/19 06:33 Alkaline Phosphatase 96 U/L (38-126) 04/17/19 06:33 Total Protein 8.4 g/dL (6.3-8.2) H 04/17/19 06:33 Albumin 4.4 g/dL (3.5-5.0) 04/17/19 06:33 Triglycerides 177 mg/dL (<150) H 04/16/19 09:00 Cholesterol 190 mg/dL (<200) 04/16/19 09:00 LDL Cholesterol, Calc 124 mg/dL (<130) 04/16/19 09:00 HDL Direct 31 mg/dL (>40) L 04/16/19 09:00 Cholesterol/HDL Ratio 6.0 (<4.4) H 04/16/19 09:00 Lipase 765 U/L (23-300) H 04/17/19 06:33 Urine Color Yellow (YELLOW) 04/16/19 02:20 Urine Appearance Clear (CLEAR) 04/16/19 02:20 Urine pH 7.0 (5.0 - 8.0) 04/16/19 02:20 Ur Specific [place] 1.020 (1.010-1.030) 04/16/19 02:20 Urine Protein 2+ mg/dL (NEGATIVE) H 04/16/19 02:20 Urine Ketones 3+ mg/dL (NEGATIVE) H 04/16/19 02:20 Urine Occult Blood Negative (NEGATIVE) 04/16/19 02:20 Urine Nitrite Negative (NEGATIVE) 04/16/19 02:20 Urine Bilirubin 1+ (NEGATIVE) H 04/16/19 02:20 Urine Urobilinogen 0.2 Eu (0.2-1.0) 04/16/19 02:20 Ur Leukocyte Esterase Negative (NEGATIVE) 04/16/19 02:20 Urine Glucose Negative mg/dL (NEGATIVE) 04/16/19 02:20 Urine HCG, Qual Negative (NEGATIVE) 04/16/19 02:20 Assessment/Plan - Assessment/Plan (1) Acute pancreatitis Status: Acute Current Visit: Yes Qualifiers: Pancreatitis type: drug induced Acute pancreatitis complication: no infection or necrosis Qualified Code(s): K85.30 - Drug induced acute pancreatitis without necrosis or infection Assessment: Still having some abdominal discomfort, nausea with occasional emesis. Plan: Will continue with pain plan, antiemetic, IVF, IV protonix (2) Diabetes type 2, controlled Status: Acute Current Visit: Yes Qualifiers: Diabetes mellitus shelter insulin use: without superintendent container terminal use Diabetes mellitus complication status: with hyperglycemia Qualified Code(s): E11.65 - Type 2 diabetes mellitus with hyperglycemia Assessment: Blood sugars are elevated but gradually decreasing Plan: Will continue on sliding scale insulin (3) Essential hypertension Status: Acute Current Visit: Yes Assessment: Denies any headaches; asymptomatic Plan: will continue with Lisinopril and hydralazine PRN (4) COPD with acute exacerbation Status: Acute Current Visit: No Assessment: patient has on Nicotine patch; denies urge to smoke or use tobacco. Plan: Continue patches;
[2019-04-17] MEDS ORDERED: lamoTRIgine 100 MG TABLET PO ONE (08:47)
[2019-04-17] MEDS ORDERED: DULoxetine HCL 30 MG CAPSULE.DR PO ONE (08:47)
[2019-04-17] MEDS: DULOXETINE HCL 60 MG PO SCH (08:56)
[2019-04-17] MEDS: BACLOFEN 10 MG TABLET PO SCH ×2 (08:56→21:34)
[2019-04-17] MEDS: amLODIPine BESYLATE 5 MG TABLET PO SCH (08:57)
[2019-04-17] MEDS: Non-Formulary 1 EACH (Lamotrigine [Lamictal] 200 MG) PO SCH (08:58)
[2019-04-17] MEDS: LISINOPRIL 20 MG TABLET PO SCH (08:58)
[2019-04-17] MEDS: METOPROLOL TARTRATE 25 MG TABLET PO SCH ×2 (08:58→21:34)
[2019-04-17] MEDS: ENOXAPARIN SODIUM 40 MG/0.4 ML DISP.SYRIN SQ SCH (08:59)
--- NOTE | 2019-04-17 11:19 | Diagnostic Imaging Report ---
PATIENT MR#: [id number] PATIENT PATIENT NAME: DAVID CHASE DATE OF : 1975 REFERRING PHYSICIAN: Simi Perkins EXAM DATE: 04/17/2019 ACCESSION NUMBER: [id number] EXAM DESCRIPTION: US ABDOMEN LIMITED Right upper quadrant ultrasound History: Pancreatitis Transverse and longitudinal images were obtained through the right upper quadrant. The examination is limited due to body habitus and the patient had difficulty tolerating the pressure of the probe. The pancreas is limitedly assessed. The liver is diffusely echogenic consistent with diffuse hepatic steatosis. No hepatic masses are evident. The right kidney measures 15 cm in length and demonstrates no hydronephr osis or evident mass. No gallbladder abnormalities are noted. The common bile duct cannot be visualized. Impression: Limited visualization of the pancreas and the common bile duct cannot be visualized. Diffuse hepatic steatosis. Normal gallbladder. Read by: Dr. Carley Anton Transcribed by: Transcribed Date: Electronically signed by: Dr. Carley Anton Date signed: 04/17/2019 11:18:47 AM
[2019-04-17] MEDS ORDERED: ACETAMINOPHEN 1,000 MG/100 ML INJ IV ONE (12:12)
[2019-04-17] MEDS ORDERED: HYDROmorphone HCL/PF 1 MG/ML VIAL IVP PRN (12:17)
[2019-04-17] MEDS: ACETAMINOPHEN 1,000 MG/100 ML INJ IV PRN ×2 (12:22→20:44)
[2019-04-17] MEDS: hydrALAZINE HCL 20 MG/1 ML IVP PRN ×2 (13:32→20:47)
[2019-04-17] MEDS ORDERED: POLYETHYLENE GLYCOL 3350 17 GM POWD.PACK ONE (13:59)
[2019-04-17] MEDS: ONDANSETRON HCL/PF 4 MG/ 2ML VIAL IVP PRN ×2 (14:11→19:57)
[2019-04-17] MEDS ORDERED: POLYETHYLENE GLYCOL 3350 17 GM POWD.PACK PO ONE (14:30)
[2019-04-17] MEDS: lamoTRIgine 100 MG TABLET PO SCH (21:33)
[2019-04-17] MEDS: DULoxetine HCL 30 MG CAPSULE.DR PO SCH (21:34)
[2019-04-18] MEDS: 0.9 % SODIUM CHLORIDE 1,000 ML IV SCH ×2 (00:40→18:25)
[2019-04-18] MEDS: ACETAMINOPHEN 1,000 MG/100 ML INJ IV PRN (02:27)
[2019-04-18] MEDS: KETOROLAC TROMETHAMINE 30 MG/1ML VIAL IV PRN ×4 (03:01→20:43)
[2019-04-18] MEDS: PANTOPRAZOLE SODIUM 40 MG in SODIUM CHLORIDE 0.9 % (FLUSH) 10 ML IVP SCH ×2 (06:06→20:54)
[2019-04-18] MEDS: INSULIN REGULAR, HUMAN 100 UNIT/ML 10ML VIAL SQ SCH ×3 (07:30→18:22)
[2019-04-18] MEDS: BACLOFEN 10 MG TABLET PO SCH ×2 (08:17→20:45)
[2019-04-18] MEDS: NICOTINE 21mg 1 EACH PATCH.TD24 TD SCH (08:19)
[2019-04-18] MEDS: DULoxetine HCL 30 MG CAPSULE.DR PO SCH ×2 (08:19→20:45)
[2019-04-18] MEDS: METOPROLOL TARTRATE 25 MG TABLET PO SCH ×2 (08:19→20:45)
[2019-04-18] MEDS: lamoTRIgine 100 MG TABLET PO SCH ×2 (08:19→20:44)
[2019-04-18] MEDS: amLODIPine BESYLATE 5 MG TABLET PO SCH (08:19)
[2019-04-18] MEDS: LISINOPRIL 20 MG TABLET PO SCH (08:19)
[2019-04-18] MEDS: ENOXAPARIN SODIUM 40 MG/0.4 ML DISP.SYRIN SQ SCH (08:20)
[2019-04-18] MEDS: hydrALAZINE HCL 20 MG/1 ML IVP PRN (08:28)
--- NOTE | 2019-04-18 11:24 | Inpatient Progress Note ---
Subjective - Required Recertification Statement I anticipate X number of days because-include discharge plan: Unknown - Review of Systems Events since last encounter: patient resting comfortably in bed at this time; she is tolerating water but not the apple juice; will try to dilute and give Zofran prior to drinking; patient ambulated in the carranza this morning. Labs are improving; patient is feeling better; will continue to monitor patient blood pressure, tachycardia, and abdom inal discomfort. General: Denies: Chills, Night Sweats HEENT: Denies: Head Aches, Dysphasia Pulmonary: Denies: Dyspnea Cardiovascular: Denies: Chest Pain, Edema, Light [place]adedness Gastrointestinal: Nausea, Abdominal Pain Genitourinary: Denies: Dysuria Musculoskeletal: Back Pain (chronic) Neurological: Denies: Weakness Objective - Exam Vitals and I&O: Vital Signs Temp 97.4 F L 04/18/19 10:00 Pulse 120 H 04/18/19 10:00 Resp 20 04/18/19 10:00 BP 169/111 04/18/19 10:00 Pulse Ox 96 04/18/19 05:51 Intake & Output 04/17/19 04/17/19 04/18/19 11:59 23:59 11:59 Intake Total 750 1477 480 Output Total 650 900 Balance 100 577 480 Weight 111.584 kg 111.13 kg Intake: IV 750 1277 360 Right Hand 750 1277 360 Oral 0 200 120 Output: Urine 650 900 Other: Voiding Method Toilet Toilet Toilet # Voids 3 2 # Bowel Movements 0 General: Alert, Oriented to Person, Oriented to Place, Oriented to Time, Cooperative, Mild distress, Obese HEENT: Atraumatic, PERRLA, Mouth Mucous membr. moist/[place], Nose Mucous membr. moist/[place] Neck: Supple, +2 carotid pulse wo bruit Lungs: Clear to auscultation, Normal air movement, Speaks full Sentences Cardiovascular: Normal S1, Normal S2, Tachycardia Abdomen: Normal bowel sounds, Soft Extremities: Normal pulses, No tenderness/swelling Skin: [place], Warm, Dry Neurological: Normal gait, Normal speech, Strength Equal Bilat, Generalized Weakness Psych/Mental Status: Mental status NL, Mood NL, Appropriate Affect, Intact Judgment - Results Results: Laboratory Results WBC 26.60 K/ul (4.00-12.00) H 04/17/19 06:33 RBC 5.09 M/ul (3.90-5.20) 04/17/19 06:33 Hgb 14.0 g/dL (11.5-16.0) 04/17/19 06:33 Hct 43.5 % (34.5-46.5) 04/17/19 06:33 MCV 85.0 fl (80.0-100.0) 04/17/19 06:33 MCH 27.5 pg (28.0-34.0) L 04/17/19 06:33 MCHC 32.3 g/dL (30.0-36.0) 04/17/19 06:33 RDW 13.6 % (11.3-14.3) 04/17/19 06:33 Plt Count 485 K/mm3 (130-400) H 04/17/19 06:33 Neut % (Auto) 78.7 % (39.0-79.0) 04/17/19 06:33 Lymph % (Auto) 12.8 % (16.0-50.0) L 04/17/19 06:33 [place] % (Auto) 6.2 % (0.0-11.0) 04/17/19 06:33 Eos % (Auto) 1.5 % (0.0-6.8) 04/17/19 06:33 Baso % (Auto) 0.8 % (0.0-1.5) 04/17/19 06:33 Neut # (Auto) 21.0 # k/uL (1.4-7.7) H 04/17/19 06:33 Lymph # (Auto) 3.4 # k/uL (0.6-4.0) 04/17/19 06:33 [place] # (Auto) 1.7 # k/uL (0.0-0.9) H 04/17/19 06:33 Eos # (Auto) 0.4 # k/uL (0.0-0.6) 04/17/19 06:33 Baso # (Auto) 0.2 # k/uL (0.0-0.5) 04/17/19 06:33 Seg Neutrophils % 83 % (39-79) H 04/17/19 06:33 Band Neutrophils % 2 % (0-12) 04/16/19 09:00 Lymphocytes % 10 % (16-50) L 04/17/19 06:33 Monocytes % 6 % (0-11) 04/17/19 06:33 Eosinophils % 1 % (0-7) 04/17/19 06:33 Hypersegmented Neuts Present 04/17/19 06:33 Large Platelets Present (NEGATIVE) H 04/17/19 06:33 Plt Morphology Comment Abnormal (NORMAL) H 04/17/19 06:33 RBC Morph Comment Normal (NORMAL) 04/17/19 06:33 Sodium 137 mmol/L (137-145) 04/17/19 06:33 Potassium 3.8 mmol/L (3.5-5.1) 04/17/19 06:33 Chloride 100 mmol/L (98-107) 04/17/19 06:33 Carbon Dioxide 25 mmol/L (22-30) 04/17/19 06:33 Anion Gap 15.8 04/17/19 06:33 BUN 8 mg/dL (7-17) 04/17/19 06:33 Creatinine 0.33 mg/dL (0.52-1.04) L 04/17/19 06:33 Estimated Creat Clear 464 04/17/19 06:33 Est GFR ( Amer) > 60 (60-) 04/17/19 06:33 Est GFR (Non-Af Amer) > 60 (60-) 04/17/19 06:33 Glucose 149 mg/dL (74-106) H 04/17/19 06:33 Lactate 2.4 U/L (0.7-2.1) H 04/16/19 02:08 Calcium 8.8 mg/dL (8.4-10.2) 04/17/19 06:33 Total Bilirubin 0.6 mg/dL (0.2-1.3) 04/17/19 06:33 AST 33 U/L (15-46) 04/17/19 06:33 ALT 31 U/L (0-35) 04/17/19 06:33 Alkaline Phosphatase 96 U/L (38-126) 04/17/19 06:33 Total Protein 8.4 g/dL (6.3-8.2) H 04/17/19 06:33 Albumin 4.4 g/dL (3.5-5.0) 04/17/19 06:33 Triglycerides 177 mg/dL (<150) H 04/16/19 09:00 Cholesterol 190 mg/dL (<200) 04/16/19 09:00 LDL Cholesterol, Calc 124 mg/dL (<130) 04/16/19 09:00 HDL Direct 31 mg/dL (>40) L 04/16/19 09:00 Cholesterol/HDL Ratio 6.0 (<4.4) H 04/16/19 09:00 Lipase 765 U/L (23-300) H 04/17/19 06:33 Urine Color Yellow (YELLOW) 04/16/19 02:20 Urine Appearance Clear (CLEAR) 04/16/19 02:20 Urine pH 7.0 (5.0 - 8.0) 04/16/19 02:20 Ur Specific [place] 1.020 (1.010-1.030) 04/16/19 02:20 Urine Protein 2+ mg/dL (NEGATIVE) H 04/16/19 02:20 Urine Ketones 3+ mg/dL (NEGATIVE) H 04/16/19 02:20 Urine Occult Blood Negative (NEGATIVE) 04/16/19 02:20 Urine Nitrite Negative (NEGATIVE) 04/16/19 02:20 Urine Bilirubin 1+ (NEGATIVE) H 04/16/19 02:20 Urine Urobilinogen 0.2 Eu (0.2-1.0) 04/16/19 02:20 Ur Leukocyte Esterase Negative (NEGATIVE) 04/16/19 02:20 Urine Glucose Negative mg/dL (NEGATIVE) 04/16/19 02:20 Urine HCG, Qual Negative (NEGATIVE) 04/16/19 02:20 Assessment/Plan - Assessment/Plan (1) Tachycardia Status: Acute Current Visit: Yes Assessment: patient heart rate >100; denies chest pain or SOA Plan: Patient on Metoprolol BID; no sxs of dehydration (2) Acute pancreatitis Status: Acute Current Visit: Yes Qualifiers: Pancreatitis type: drug induced Acute pancreatitis complication: no infection or necrosis Qualified Code(s): K85.30 - Drug induced acute pancreatitis without necrosis or infection Assessment: Still having some abdominal discomfort, nausea with occasional emesis Plan: Will continue with pain plan, antiemetic, IVF, IV protonix (3) Diabetes type 2, controlled Status: Acute Current Visit: Yes Qualifiers: Diabetes mellitus detention insulin use: without watermelon inspector use Diabetes mellitus complication status: with hyperglycemia Qualified Code(s): E11.65 - Type 2 diabetes mellitus with hyperglycemia Assessment: Blood sugars are elevated but gradually decreasing Plan: Will continue on sliding scale insulin (4) Essential hypertension Status: Acute Current Visit: Yes Assessment: Denies any headaches; asymptomatic Plan: will continue with Lisinopril and hydralazine PRN, added amlodipine 5mg daily (5) COPD with acute exacerbation Status: Acute Current Visit: No Assessment: patient has on Nicotine patch; denies urge to smoke or use tobacco. Plan: Continue patches; continue use of incentive spirometer
[2019-04-18] MEDS ORDERED: MAG HYDROX/ALUMINUM HYD/SIMETH 30 ML UDC PO PRN (11:27)
[2019-04-18 11:35] LABS: BASOPHILS % 0.6 % (0.0-1.5); NEUTROPHILS # 16.7 # k/uL (1.4-7.7); eGFR (Non-African) > 60
[2019-04-18] MEDS: ONDANSETRON HCL/PF 4 MG/ 2ML VIAL IVP PRN (13:19)
[2019-04-18] MEDS ORDERED: POLYETHYLENE GLYCOL 3350 17 GM POWD.PACK PO ONE (14:00)
[2019-04-18] MEDS ORDERED: PANTOPRAZOLE SODIUM INJ. 40 MG VIAL ONE (19:33)
[2019-04-19] MEDS: KETOROLAC TROMETHAMINE 30 MG/1ML VIAL IV PRN ×2 (02:40→08:58)
[2019-04-19] MEDS ORDERED: PANTOPRAZOLE SODIUM INJ. 40 MG VIAL ONE (05:13)
[2019-04-19] MEDS: 0.9 % SODIUM CHLORIDE 1,000 ML IV SCH (05:44)
--- NOTE | 2019-04-19 06:41 | Diagnostic Imaging Report ---
PATIENT MR#: [id number] PATIENT PATIENT NAME: DAVID CHASE DATE OF : 1975 REFERRING PHYSICIAN: Simi Perkins EXAM DATE: 04/19/2019 ACCESSION NUMBER: [id number] EXAM DESCRIPTION: ABDOMEN 1VIEW KUB History: Pancreatitis. Constipation. Four views of the abdomen demonstrate a normal amount of stool in the cecum. No stool is noted elsew here in the colon. No dilated loops of large or small bowel are noted. Impression: Appropriate amount of stool in the cecum. No constipation. Read by: Dr. Carley Anton Transcribed by: Transcribed Date: Electronically signed by: Dr. Carley Anton Date signed: 04/19/2019 6:40:56 AM
[2019-04-19 07:29] LABS: eGFR (Non-African) > 60
[2019-04-19 07:57] LABS: BASOPHILS % 0.7 % (0.0-1.5); NEUTROPHILS # 11.4 # k/uL (1.4-7.7)
[2019-04-19 07:58] LABS: BASOPHILS % 1 % (0-2); SEGMENTED NEUTROPHILS % 68 % (39-79)
--- NOTE | 2019-04-19 08:00 | Discharge Summary ---
Discharge Summary - Discharge [facility] Admission Date: 04/16/19 Discharge Date: 04/19/19 Discharge To: Home History of Present Illness: 43yo female who states that she has had several month history of intermittent abd pain. Was told that she had some fatty liver disease. Saturday start to have some epigastric pain with radiation into the back area. No modifying factors noted. Has been nauseated with dry heaving at times. No fever or chills noted. Was seen in ED on Saturday and last night for the pain. Was found to have pancreatitis and admitted to the hospital for further evaluation and treatment. No previous history of pancreatitis. No history of gall stones. Denies any alcoholic intake. Condition at Discharge: Stable Home Medications: Ambulatory Orders Medication Instructions Recorded Atorvastatin Calcium 10 mg PO DAILY 11/08/15 Oxycodone HCl 1 tab PO TID PRN 04/09/16 Omeprazole (Nf) [Omeprazole] 40 mg PO BID 06/03/18 Lisinopril 40 mg PO D 07/08/18 metFORMIN HCl [Glucophage] 1,000 mg PO BID 07/08/18 Glimepiride [Amaryl] 2 mg PO D 07/21/18 Baclofen 10 mg PO BID #20 tablet 04/14/19 Duloxetine HCl [Cymbalta] 60 mg PO BID 04/14/19 Lamotrigine [Lamictal] 200 mg PO BID 04/14/19 Umeclidinium Brm/Vilanterol Tr 1 puff IH DAILY 04/14/19 [Anoro Ellipta 62.5-25 Mcg INH] Pioglitazone HCl [Actos] 15 mg PO DAILY #30 tablet 04/19/19 amLODIPine BESYLATE [Norvasc] 5 mg PO 0900 #30 tablet 04/19/19 Consultations this Visit: None Procedures this Visit: None Allergies/Adverse Reactions: Allergies Allergy/AdvReac Type Severity Reaction Status Date / Time No Known Allergies Allergy Verified 04/16/19 01:56 Patient Problems: Current Active Problems Problem Status Onset Acute pancreatitis Acute Bipolar 2 disorder Acute Diabetes type 2, controlled Acute Essential hypertension Acute Tachycardia Acute Discharge Summary: 43 year old female has done well; blood sugars are WNL; we will stop Januvia (may have been cause of pancreatitis). Will start patient on pioglitazone 15mg daily; blood pressures are still slightly elevated and we will add amlodipine 5 mg daily to medication list; patient is on Metoprolol BID. Patient will follow up with PCP next week; needs referral to Endocrinology. Patient was educated to stop smoking, monitor diet (decrease carbs-sugars, flour, bread, etc..). Patient will check blood sugars and blood pressures daily, keep a log, and take to follow up appointment. Hospital Course: IVF, IV pain control, IV emetics, IV protonix, BP monitoring, blood sugar monitoring - Final Diagnosis (1) Acute pancreatitis Problems: Stable; improved (will stop Januvia) Right or Left: Right (2) Bipolar 2 disorder Problems: Stable; continue home meds Right or Left: Right (3) Diabetes type 2, controlled Problems: Will start patient on pioglitazone and stop Januvia; blood sugar this morning 100 Right or Left: Right (5) Tachycardia Problems: Stable; continue home meds Right or Left: Right (6) Acute back pain Problems: Stable Right or Left: Right (7) COPD with acute exacerbation Problems: Education provided to stop smoking Right or Left: Right (8) Leukocytosis Problems: Improved Right or Left: Right
[2019-04-19] MEDS: DULoxetine HCL 30 MG CAPSULE.DR PO SCH (08:22)
[2019-04-19] MEDS: LISINOPRIL 20 MG TABLET PO SCH (08:22)
[2019-04-19] MEDS: METOPROLOL TARTRATE 25 MG TABLET PO SCH (08:22)
[2019-04-19] MEDS: lamoTRIgine 100 MG TABLET PO SCH (08:22)
[2019-04-19] MEDS: amLODIPine BESYLATE 5 MG TABLET PO SCH (08:22)
[2019-04-19] MEDS: BACLOFEN 10 MG TABLET PO SCH (08:22)
[2019-04-19] MEDS: ENOXAPARIN SODIUM 40 MG/0.4 ML DISP.SYRIN SQ SCH (08:23)
[2019-04-19] MEDS: NICOTINE 21mg 1 EACH PATCH.TD24 TD SCH (08:24)
[2019-04-19] MEDS: PANTOPRAZOLE SODIUM 40 MG in SODIUM CHLORIDE 0.9 % (FLUSH) 10 ML IVP SCH (08:33)
[2019-04-19] MEDS: INSULIN REGULAR, HUMAN 100 UNIT/ML 10ML VIAL SQ SCH (08:36)
[2019-04-19 08:38] VITALS: BP 160/92
== END 2019-04-19 09:05 | disposition home or self-care (01) | DRG 439 ==
LOC: ED 01:24 → SOUTH 03:34
PROVIDERS: ADMIT Nurse Practitioner Family; ATTEND Nurse Practitioner Family
DX: K85.30 Drug induced acute pancreatitis without necrosis or infection (principal); F31.81 Bipolar II disorder; J44.1 Chronic obstructive pulmonary disease with (acute) exacerbation; Z68.42 Body mass index [BMI] 45.0-49.9, adult; K21.9 Gastro-esophageal reflux disease without esophagitis; I10 Essential (primary) hypertension; K76.0 Fatty (change of) liver, not elsewhere classified; E66.9 Obesity, unspecified; T38.3X5A Adverse effect of insulin and oral hypoglycemic [antidiabetic] drugs, initial encounter; M54.9 Dorsalgia, unspecified; E11.65 Type 2 diabetes mellitus with hyperglycemia; R00.0 Tachycardia, unspecified; F17.210 Nicotine dependence, cigarettes, uncomplicated; Z90.49 Acquired absence of other specified parts of digestive tract; Z79.899 Other long term (current) drug therapy; Z79.84 Long term (current) use of oral hypoglycemic drugs
CPT/HCPCS: 36415; 74018; 74177; 76705; 80053; 80061; 81002; 81025; 83036; 83605; 83690; 85025; 87040; 93005; 99221; 99231; 99238; J0360; J1170; J1650; J1885; J2270; J2405; J1815; J7030; Q9967; S1016

== ENCOUNTER 2019-05-05 08:53 | Outpatient (CLI) | payer OTHER ==
--- NOTE | 2019-05-05 12:54 | Diagnostic Imaging Report ---
PATIENT MR#: [id number] PATIENT PATIENT NAME: DAVID CHASE DATE OF : 1975 REFERRING PHYSICIAN: Marium Mancera EXAM DATE: 05/05/2019 ACCESSION NUMBER: [id number] EXAM DESCRIPTION: PELVIS AP 1 OR 2 VIEWS HISTORY: LUMBAGO, LUMBAR RADICULITIS VS. RADICULOPATHY COMPARISON: No pertinent prior studies are available at this time. PELVIS XRAY, FRONTAL VIEW: Pelvic bone: Intact appearance. Pelvic soft tissue: No calcifications along the expected course of the ureters. Hips: No fracture or dislocation. IMPRESSION: Normal pelvis. Read by: Dr. Richard Burnett Transcribed by: Richard Burnett Transcribed Date: 05/05/2019 12:53:52 PM Electronically signed by: Dr. Richard Burnett Date signed: 05/05/2019 12:53:52 PM
--- NOTE | 2019-05-05 12:55 | Diagnostic Imaging Report ---
PATIENT MR#: [id number] PATIENT PATIENT NAME: DAVID CHASE DATE OF : 1975 REFERRING PHYSICIAN: Marium Mancera EXAM DATE: 05/05/2019 ACCESSION NUMBER: [id number] EXAM DESCRIPTION: T SPINE 3 VIEWS HISTORY: THORACIC SPINE PAIN. COMPARISON: No relevant comparison is available at the time of interpretation. T-SPINE XRAY, 3 Views: Vertebral bodies: No compression deformities. Disc spaces: Mild degenerative endplate changes of the lower thoracic levels. Alignment: Normal thoracic kyphosis without listhesis. IMPRESSION: Mild disc spondylosis of the lower thoracic levels. Read by: Dr. Richard Burnett Transcribed by: Richard Burnett Transcribed Date: 05/05/2019 12:55:26 PM Electronically signed by: Dr. Richard Burnett Date signed: 05/05/2019 12:55:26 PM
--- NOTE | 2019-05-05 13:02 | Diagnostic Imaging Report ---
PATIENT MR#: [id number] PATIENT PATIENT NAME: DAVID CHASE DATE OF : 1975 REFERRING PHYSICIAN: Marium Mancera EXAM DATE: 05/05/2019 ACCESSION NUMBER: [id number] EXAM DESCRIPTION: L SPINE 4 VIEWS CLINICAL HISTORY: LUMBAGO, LUMBAR RADICULITIS VS. RADICULOPATHY COMPARISON: No relevant comparison is available at the time of interpretation. L-SPINE XRAY, 7 views including obliques and flexion - extension: Vertebral bodies: Incomplete fusion of posterior ring of L5. Non rib bearing T12. No compression defo rmities. Disc spaces: Mild degenerative disc narrowing at L2-3, L3-4, L4-5 and L5-S1. Alignment: Minimal levocurvature centered at L2. Normal lumbar lordosis without listhesis on flexion extension. Facets: Degenerative arthrosis at L4-5 and L5-S1. IMPRESSION: 1. Minimal lumbar levocurvature. 2. Mild degenerative disc disease from L2-3 through L5-S1. Read by: Dr. Richard Burnett Transcribed by: Richard Burnett Transcribed Date: 05/05/2019 1:00:58 PM Electronically signed by: Dr. Richard Burnett Date signed: 05/05/2019 1:00:58 PM
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
== END 2019-05-05 09:50 ==
LOC: OUT 08:53
PROVIDERS: ATTEND Nurse Practitioner Adult Health
DX: M54.5 Low back pain (principal); M54.6 Pain in thoracic spine
CPT/HCPCS: 72072; 72110; 72170; 80307; 80358; 99204

== ENCOUNTER 2019-05-26 13:57 | Outpatient (CLI) | payer OTHER ==
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
== END 2019-05-26 14:57 | disposition home or self-care (01) ==
LOC: OUT 13:57
PROVIDERS: ATTEND Nurse Practitioner Adult Health
DX: M47.896 Other spondylosis, lumbar region (principal); M51.36 Other intervertebral disc degeneration, lumbar region; M47.894 Other spondylosis, thoracic region
CPT/HCPCS: 99213